=== PATIENT | male | born 1940 | race Caucasian/White ===

== ENCOUNTER → 2020-06-25 08:07 | Outpatient (CLI) | payer MEDICARE, OTHER, SELFPAY | PROVIDERS: PCP Family Medicine; Visit Provider Specialist | DX: N39.0 Urinary tract infection, site not specified (principal); R39.9 Unspecified symptoms and signs involving the genitourinary system; N39.41 Urge incontinence | CPT/HCPCS: 51798; 81002; 87086; 99214 ==

== ENCOUNTER → 2021-07-01 10:40 | Outpatient (CLI) | payer MEDICARE, OTHER, SELFPAY ==
[2021-07-01 12:02] LABS: Add Manual Diff / Slide Review NO; Basophils Absolute Auto 0 /uL (0-100); Basophils Percent Auto 0.8 % (0-2); Eosinophils Absolute Auto 300 /uL (0-450); Eosinophils Percent Auto 5.9 % (2-4); Hematocrit 38.4 % (41-53); Hemoglobin 12.9 g/dL (13.5-17.5); Lymphocytes Absolute Auto 1400 /uL (1100-4500); Lymphocytes Percent Auto 26.6 % (25-40); Mean Corpuscular HGB Conc 33.5 % (30-36); Mean Corpuscular Hemoglobin 32.4 PG (26-34); Mean Corpuscular Volume 96.5 fL (80-100); Monocytes Absolute Auto 400 /uL (0-900); Monocytes Percent Auto 8.2 % (3-14); Neutrophils Absolute Auto 3200 /uL (1500-7000); Neutrophils Percent Auto 58.5 % (50-75); Platelet Count 165 X10^3/uL (150-400); Red Blood Cell Count 3.98 X10^6/uL (4.5-5.9); Red Cell Distribution Width 12.6 % (11.6-14.8); White Blood Cell Count 5.4 X10^3/uL (4.5-11.0)
[2021-07-01 12:06] LABS: BUN Creatinine Ratio 22.8 (6-22); Blood Urea Nitrogen 28 mg/dL (9-20); Calcium 9.4 mg/dL (8.4-10.2); Carbon Dioxide 25 mmol/L (22-32); Chloride 107 mmol/L (98-107); Estimated Glomerular Filt Rate 56.2 mL/min (>60); Glucose 100 mg/dL (80-110); HEMOLYSIS < 15 (0-50); Potassium 4.3 mmol/L (3.4-5.1); Sodium 138 mmol/L (137-145)
[2021-07-01 12:51] LABS: Hemoglobin A1C% w Est Avg Glu 5.4 % (4.0-6.0)
== END ==
PROVIDERS: PCP Family Medicine; Referring Provider Orthopaedic Surgery; Visit Provider Orthopaedic Surgery
DX: Z01.818 Encounter for other preprocedural examination (principal); R73.9 Hyperglycemia, unspecified; Z01.812 Encounter for preprocedural laboratory examination; M25.562 Pain in left knee
CPT/HCPCS: 36415; 80048; 83036; 85025; 93005; 93010

== ENCOUNTER → 2022-05-18 12:44 | Outpatient (CLI) | payer MEDICARE, OTHER, SELFPAY ==
[2022-05-18 13:29] LABS: COVID19 -Nasal RAPID Negative (Negative)
== END ==
PROVIDERS: PCP Family Medicine; Referring Provider Orthopaedic Surgery; Visit Provider Orthopaedic Surgery
DX: Z20.822 Contact with and (suspected) exposure to COVID-19 (principal)
CPT/HCPCS: 87635; C9803

== ENCOUNTER 2022-05-19 07:31 | Day surgery (SDC) | payer MEDICARE, OTHER, SELFPAY ==
[2022-05-11 12:35] VITALS: BMI 25.0
[2022-05-19] VITALS (12 sets, daily range): BP systolic 109–160; BP diastolic 60–85; PULSE 60–622; RESP 8–18; TEMP 35.6–36.8; O2SAT 95–99; BMI 25.0
[2022-05-19] MEDS: LACTATED RINGERS 1,000 ML 42 ML IV ×2 (08:17→09:46)
--- NOTE | 2022-05-19 08:36 | DI.RAD.S_ITS ---
PROCEDURE: XR KNEE LT 1TO2V INDICATIONS: post op total knee TECHNIQUE: 2 view(s) of the knee acquired. COMPARISON: None. FINDINGS: Bones: Patient is status post knee joint arthroplasty. Hardware components are in expected positions. Visualized bony structures are intact. Soft tissues: Overlying postoperative changes are noted. IMPRESSION: Postop changes from left total knee arthroplasty with anatomic left knee alignment. Dictated by: José Miguel Braswell M.D. on 05/19/2022 at 11:25 Approved by: José Miguel Braswell M.D. on 05/19/2022 at 11:25
--- NOTE | 2022-05-19 08:39 | PM.PREOP ---
Pre-operative Note COVID-19 COVID-19 status: Negative Result date/Date tested (Pos, Neg/Pending): 05/18/22 Interval Note History & Physical reviewed/Exam performed by Physician: Yes Changes to H&P: No
--- NOTE | 2022-05-19 08:41 | PM.OP.1 ---
Operative Date/Time/Diagnoses Date of procedure: 05/19/22 Time of procedure: 10:30 Pre-op diagnosis: Knee osteoarthritis Post-op diagnosis: same Procedure & Clinicians Procedure: Left total knee replacement Same procedure as scheduled: Yes Indications: The patient has had progressively worsening left knee pain with radiographic changes consistent with arthritis. Non-operative management has failed and the patient has requested total knee replacement. The risks, benefits and alternatives to surgery were discussed with the patient prior to proceeding. Risks discussed included, but were not limited to, failure to relieve pain, stiffness, infection, nerve damage, deep venous thrombosis, pulmonary embolism, stroke, coma, heart attack, permanent paralysis and , as well as the potential need for eventual revision of the prosthetic. Surgeon: Srinivas Saucedo Splitter Operator: Kamala Short Click Yes if Unassisted: No Anesthesia Type: General, Spinal and Local Operative Notes Findings: Severe lateral and moderate patellofemoral osteoarthritis with relative preservation of the medial compartment. Closure Type: primary Specimen(s): none sent Prosthetic devices, grafts, tissues, transplants, or devices: Implants used in this procedure were manufactured by the [employer] and [employer] and included the BCS II Journey total knee replacement with a size 8 cobalt chromium femur, a size 7 left non porous tibial base plate, a 9 mm cross-linked tibial insert and a 41 mm oval Melinda II patella. Applied: implant(s) Estimated Blood Loss (mL): 50 Blood products transfused: none Tourniquet time (min): 60 Procedure in detail: The patient was seen in the pre-operative area, where the left knee was identified as the operative site and this was marked with my initials. The patient received pre-operative antibiotics, and was taken to the operating room and placed on the operative table in the supine position. After satisfactory anesthesia, a time clock mechanic out was performed. The left leg was encircled with a tourniquet about the proximal thigh, and the leg was prepared from the toes to the tourniquet with ChloroPrep in the usual fashion and draped through sterile drapes. The leg was elevated and exsanguinated with Eschmark bandage and the tourniquet inflated to 250 mmHg pressure. The knee was approached through an approximately 18 cm incision centered over the patella and carried into the knee through a medial parapatellar arthrotomy. The anterior osteophytes and soft tissues were removed. The rotational landmarks of Nika's line and the transepicondylar axis were marked on the femur with electrocautery, and intramedullary guide holes for the femur and tibia were created. The distal femoral cut was made in 6 degrees of valgus using the intramedullary guide at the +2 cut setting due to a flexion contracture. The proximal tibial cut was then made using the intramedullary guide, taking 7 mm of bone off the less involved medial side. The extension gap was checked and the rotation of the femoral component confirmed with the gap balancing blocks. The anterior, posterior and chamfer cuts were then made. The posterior osteophytes and soft tissues were then removed. The posterior capsule was injected with part of a mixture of 50 ml 0.25% Marcaine mixed with 20 ml Exparel and 4 mg of morphine for post-operative pain control. The remainder of this mixture was injected into the capsule and subcutaneous tissues during cement curing. The tibia was prepared with the rotation set by an extra medullary guide. Trial tibial and femoral components were then placed and the intercondylar notch cut through the femoral trial. Range of motion was 0-135 degrees, with good stability throughout the range. The patella was then cut to accommodate the patellar prosthetic. There was no need for a lateral release. The trials were then removed, and the femoral hole plugged with a bone plug. The bone was prepared with pulsatile lavage, and dried with a sponge. Cement was applied and the final prosthetics placed. Excess cement was removed during and after cement curing. After confirming there was no extruded cement posteriorly, the final tibial insert was placed. The knee was copiously irrigated and the tourniquet deflated. Hemostasis was obtained. The capsule was closed with interrupted # 2 polyester sutures. The subcutaneous layer was closed with 3-0 Vicryl, and the skin with a running 3-0 V-Lock suture and SteriStrips. An Aquacel Ag dressing was applied and the patient was taken to recovery having tolerated the procedure well. The services of a skilled teachers assistant were required during this procedure to assist with exposure and positioning of the leg to adequately perform the procedure. Without the services of Ms. Short the case would have been considerably extended in terms of time and there would have been increased risk to the patient. Complications: none Post-operative Condition: stable Disposition: PACU Plan for aftercare: The patient will be maintained on a standard total knee replacement protocol with weight bearing as tolerated. The patient will receive aspirin and sequential compression devices for DVT prophylaxis. The patient will be discharged home when safe for the home environment.
[2022-05-19] MEDS: ACETAMINOPHEN 325 MG TABLET 975 MG PO (08:43)
[2022-05-19] MEDS: CELECOXIB 200 MG CAPSULE PO (08:43)
[2022-05-19] MEDS: PREGABALIN 75 MG CAPSULE PO (08:43)
--- NOTE | 2022-05-19 08:56 | SUR.PREOP ---
Block start time [0840] . time out performedMonitoring initiated and maintained throughout procedure. Oxygen and medications given by anesthesiologist. Patient remained stable throughout procedure, no adverse reactions noted. Block end time [0848]. Pt left for OR in stable. condition.
[2022-05-19] MEDS: CEFAZOLIN 2 GM/20 ML SYRINGE IV (09:00)
[2022-05-19] MEDS: TRANEXAMIC ACID 1,000 MG VIAL 2000 MG INJ ×2 (09:10→10:26)
--- NOTE | 2022-05-19 09:27 | PM.PROC.1 ---
Procedures Date/Time Date of procedure: 05/19/22 Time of procedure: 08:45 General Procedure description: Ultrasound guided adductor canal nerve block for post op pain control after left total knee arthroplasty by Dr. Saucedo. Risk and benefits of procedure discussed with patient. ASA monitoring applied to patient. O2 given via nasal cannula. 1 mg Versed and 50 mcg fentanyl given for procedural sedation. Skin site was prepped with chlorhexidine and allowed to fully dry. Sterile gloves, mask, hat and probe cover were used to maintain sterility. 2% lidocaine and 30ga needle was used to make a small skin wheal at needle insertion site. Under ultrasound guidance, a 21ga 100mm Pajunk needle was directed into the adductor canal near femoral artery and saphenous nerve at the level of mid thigh. Patient reported no parasthesias. After negative aspiration, 20 mL 0.5% ropivicaine, 20ml 1%lido and 10mg dexamethasone were injected around saphenous nerve. Patient tolerated procedure well.
--- NOTE | 2022-05-19 09:36 | SUR.OPER ---
Supine on padded OR bed. Pillow under head, arms secured on padded armboards <90 degree abduction. Safety belt across torso. Non-operative leg secured with tape over blanket over lower leg. Operative leg secured in DeMayo/Julian/Nathe positioner. Foam padded brace at thigh of operative leg. Directed and approved by surgeon
[2022-05-19] MEDS: BUPIVACAINE 0.25% (PF) 60 ML, EPINEPHrine 0.3 MG INJ (09:47)
[2022-05-19] MEDS: MORPHINE 4 MG/ML INJ INJ (09:47)
[2022-05-19] MEDS: BUPIVACAINE LIPOSOME 266 MG/20 ML VIAL INJ (10:21)
--- NOTE | 2022-05-19 11:19 | SUR.PHASEI ---
report called to floor. Transferred by Sujata Davidson RN. Patient awake, oriented, taking ice chips independently. Clothing bag sent with him. Stable.
[2022-05-19] MEDS: LACTATED RINGERS 1,000 ML 100 ML IV ×2 (11:40→16:32)
[2022-05-19] MEDS: ACETAMINOPHEN 325 MG TABLET 650 MG PO (12:48)
[2022-05-19] MEDS: IBUPROFEN 400 MG TABLET PO ×3 (12:49→20:51)
--- NOTE | 2022-05-19 14:45 | PT.IIE ---
Current Diagnoses Unilateral primary osteoarthritis, left knee (05/19/22) Surgery Performed Operation Date: 05/19/22 08:45 Actual Procedures p Total Knee Arthroplasty(Left) - Srinivas Saucedo MD Surgical History (Last Updated 07/17/21 @ 10:13 by Gemma Park, RN) H/O hernia repair History of arthroplasty of right knee (2009) History of carpal tunnel surgery of left wrist History of prostate surgery History of total right hip arthroplasty (07/22/14) Vasectomy status Medical History (Last Updated 05/11/22 @ 13:05 by Gemma Park RN) Adenomatous colon polyp Chronic pain of left knee Depression Disorder of prostate Giardia (07/2021) Hearing loss Hypertension Hypoglycemia Hypothyroid Lower urinary tract symptoms (LUTS) Post-traumatic urethral stricture Prostate cancer Prostate cancer Prostate neoplasm Urge incontinence Physical Therapy Inpatient Evaluation/Re-Eval M1 PT/OT-IP Prior Functional Status Start: 05/19/22 16:26 Freq: NEEDED Status: Active Protocol: Document 05/19/22 14:45 AB (Rec: 05/19/22 16:33 AB [id number]) Medical Review Prior Functional Status Medical History Reviewed Yes Communication able to make needs known Mobility and Gait pt stated that he is independent with all mobilities and ambulation without AD Social History Household Members spouse Living Arrangements House Number of Floors (Floors) Two Floors Number of Stairs To Enter/Railing? pt stays on the main level of thehouse has no steps to enter Home Environment High Toilet,Walk in Shower, Built-In Shower Seat Home Equipment Front Wheel Walker,Straight Cane,Raised Toilet Seat w/ Armrests M2 PT-IP Current Condition Start: 05/19/22 16:26 Freq: NEEDED Status: Active Protocol: Document 05/19/22 14:45 AB (Rec: 05/19/22 16:33 AB [id number]) Physical Therapy Current Condition Current Condition Evaluation Date 05/19/22 Treatment Diagnosis s/p L TKA; difficulty in walking Onset Date 05/19/22 M3 PT-IP Subjective Start: 05/19/22 16:26 Freq: NEEDED Status: Active Protocol: Document 05/19/22 14:45 AB (Rec: 05/19/22 16:33 AB [email or web address]) Subjective Physical Therapy Visit Type Type Initial Evaluation Visit Start Time 14:45 Visit Stop Time 15:25 Total Visit Minutes 40 Number of MATERIAL DISPOSITION INSPECTOR Visits 0 Physical Therapy Visit Comments Patient Comments agreeable to do PT Therapy Pain Assessment Pain When Pain Assessed At Rest Pain Present Pain Present Pain Reported Location Left Hip Intensity 4 Scale Used Numeric (0 - 10) Pain Management Techniques Apply Cold,Modification of Treatment,Re-positioning, Timing of Activity with Medications M4 PT-IP Mobility and Gait Start: 05/19/22 16:26 Freq: NEEDED Status: Active Protocol: Document 05/19/22 14:45 AB (Rec: 05/19/22 16:33 AB [email or web address]) PT-Bed Mobility Assessment Supine to Sit Supine to Sit Standby Assistance PT-Transfer Assessment Sit to and From Stand Sit to and from Stand Contact Guard Assistance, Minimal Assistance,1 Person Assistance,Use of Upper Extremities Equipment Transfer Assistive Device Gait Belt,Front Wheeled Walker Orthotic/Prosthetic Devices or Brace: No Transfers Transfer Destination Chair Transfer Technique ambulated Transfer Ability Level of Assist Contact Guard Assistance, Minimal Assistance,1 Person Assistance,Use of Upper Extremities Comments Mobility Comments pt completed supine to sit SBA . able to sit on EOB SBA. completed sit to stand CGA to min A and ambulated in room with initial min A and cues for steadiness and L quads activation and able to ambulate SBA after a few feet. completed ~ 50 ft of amublation using FWW. pt agreed to sit on the chair. positioned on the chair. call light and table placed within reach. caregiver training set up for tomorrow at ~ 10 am 05/20/22 with spouse coming. Gait Assessment Gait Gait Assistance Required: Contact Guard Assist,Minimum Assistance Distance (Feet) 50 Able to Maintain Weight Bearing Status Yes During Gait Assistive Devices Assistive Device Gait Belt,Front Wheeled Walker Orthotic/Prosthetic Devices or Brace: No Gait Deviations General Gait Pattern Antalgic,Decreased Stride Length,Decreased Feet Clearance Factors Limiting Gait Function Factors Limiting Gait Function Decreased Activity Tolerance, Decreased Strength,Limited Range of Motion,Pain,Poor Balance PT-Balance Assessment Sitting Balance and Reactions Static Sitting Balance Ability Normal Dynamic Sitting Balance Ability Normal Standing Balance and Reactions Static Standing Balance Ability Fair Dynamic Standing Balance Ability Fair Device Used FWW M5 PT-IP Objective Assessments Start: 05/19/22 16:26 Freq: NEEDED Status: Active Protocol: Document 05/19/22 14:45 AB (Rec: 05/19/22 16:33 AB [email or web address]) Orientation Orientation/Cognition Level of Alertness Alert Orientation Name,Age,Birthday,Month,Date, Year,Day of Week,Place, Situation Language Function Ability No Deficits Noted Memory Description No Deficits Noted Gross Range of Motion Lower Extremity ROM Assessment Within Functional Limits Strength Lower Extremity Strength Assessment Left Impaired Hip 4/5 Knee 4-/5 Coordination Assessment Gross Coordination Gross Coordination WNL Sensation Assessment Sensation Gross Sensation WNL Muscle Tone Muscle Tone WNL Yes M6 PT-IP Treatment Start: 05/19/22 16:26 Freq: NEEDED Status: Active Protocol: Document 05/19/22 14:45 AB (Rec: 05/19/22 16:33 AB [email or web address]) Physical Therapy Treatment Education Education Provided Precautions,Weight Bearing Status,Post-Op Packet,Safety M7 PT-IP Assessment and Plan Start: 05/19/22 16:26 Freq: NEEDED Status: Active Protocol: Document 05/19/22 14:45 AB (Rec: 05/19/22 16:33 AB [email or web address]) PT Summary Assessment and Plan Potential Rehabilitation Potential Good Status of Condition at Evaluation Stable Summary Impairments Pain,ROM,Strength,Balance, Coordination,Sensation,Tone, Cognition,Bed Mobility, Transfers,Gait,Activity Tolerance Assessment Summary pt s/p L TKA and just had surgery this morning and will likely improve during hospital stay. caregiver training set up for tomorrow at ~ 10 am. will continue to assess progress. pt has outpt PT scheduled. Goals Bed Mobility Goal Independent Transfer Goal Independent,Front Wheeled Walker Gait Goal Independent,Front Wheel Walker Gait Distance 250 Days to Meet Goals 5 Frequency of Treatment Frequency Of Treatment Twice a Day Treatment Plan Physical Therapy Treatment Plan Bed Mobility Training,Transfer Training,Gait Training, Therapeutic Exercise,Balance Retraining,Post Op Education, Discharge Planning,Hot or Cold Pack,Neuromuscular Re-ed, Coordination Retraining,Manual Therapy Weight Bearing Status Weight Bearing Status Weight Bear as Tolerated Allowed Weight Bearing Amount (enter % LLE WBAT or #) (%) Recommendations To Nursing Amount of Assist Needed 1 Person Assist Discharge Recommendations PT Discharge Recommendations Home with Assistance, Outpatient PT Transportation Needs at Discharge Private Vehicle
--- NOTE | 2022-05-19 18:00 | PC.NURSE ---
Pt is AxOx4, needs 1 person assistance with FWW but pt went to the bathroom by himself fine. VSS, c/o pain on L knee 01/21 and it is controlled well with his routine Ibuprofen and Tylenol. Pt is eating well and voiding well. No other changes. Continue monitor.
[2022-05-19] MEDS: DOCUSATE 100 MG CAPSULE PO (20:51)
[2022-05-19] MEDS: ASPIRIN EC 81 MG TABLET PO (20:51)
[2022-05-20] MEDS: ACETAMINOPHEN 325 MG TABLET 650 MG PO ×2 (01:44→06:09)
[2022-05-20] MEDS: IBUPROFEN 400 MG TABLET PO ×3 (01:45→09:29)
[2022-05-20 02:04] VITALS: BP 135/69; PULSE 67; RESP 18; TEMP 36.6; O2SAT 99
[2022-05-20] MEDS: SODIUM CHLORIDE 0.9% FLUSH 10 ML IV ×2 (03:20→09:30)
[2022-05-20 06:00] VITALS: BP 157/82; PULSE 77; RESP 18; TEMP 36.1; O2SAT 99
[2022-05-20] MEDS: LEVOTHYROXINE 50 MCG TABLET PO (06:03)
[2022-05-20 06:14] LABS: Hematocrit 31.4 % (41-53); Hemoglobin 10.8 g/dL (13.5-17.5)
--- NOTE | 2022-05-20 06:59 | P.DS_ITS ---
History of Present Illness History of Present Illness Date Patient Seen: 05/20/22 Time Patient Seen: 07:00 Chief complaint: OPB Narrative: The history and physical is contained in the chart previously completed note. Please refer to that note for this information. Discharge Providers Provider Date of admission: May 19, 2022 Discharge Date: 05/20/22 Primary care physician: Marek Dyson DO Consults: 05/19/22 11:21 Consult to Discharge Planning Routine Comment: Consult to Physical Therapy Evaluate & Treat Comment: Physician Instructions: postop TKA protocol Discharge provider: Srinivas Saucedo MD Summary Hospital Course Discharge Diagnosis: 1. Left knee osteoarthritis 2. Post hemorrhagic anemia Hospital Course: The patient was admitted to the hospital and taken directly to the operating room on May 19, 2022. He underwent a left total knee replacement without complications. On postoperative day 1 he was comfortable. He had been able to make it from his bed to the bathroom unassisted. He did have a mild post hemorrhagic anemia. Status at Discharge Cognitive/behavioral status at discharge: at baseline, oriented Functional status at discharge: uses cane/walker Overall status at discharge: patient is progressing back to baseline Time Spent with Patient Time spent: Less than 30 minutes Exam Vital Signs (past 8 hours): - 05/20/22 02:04 05/20/22 06:00 Temperature 97.9 F 97.0 F L Pulse Rate 67 77 Respiratory Rate 18 18 Blood Pressure 135/69 157/82 H Pulse Oximetry 99 99 Oxygen Flow Rate 0 0 Oxygen Delivery Method Room Air Oxygen Flow Rate 0 Narrative Exam Narrative: Left knee wound is dressed with no drainage on the bandage. Calf is soft. Light touch and motion are intact in the left lower extremity. Objective Labs Result Diagrams: 05/20/22 05:55 Labs: Laboratory Results - last 24 hr 05/20/22 05:55 Hgb 10.8 L Hct 31.4 L PFSH Medical History (Updated 05/11/22 @ 13:05 by Gemma Park RN) Adenomatous colon polyp Chronic pain of left knee Depression Disorder of prostate Giardia (07/2021) Hearing loss Hypertension Hypoglycemia Hypothyroid Lower urinary tract symptoms (LUTS) Post-traumatic urethral stricture Prostate cancer Prostate cancer Prostate neoplasm Urge incontinence Surgical History (Updated 07/17/21 @ 10:13 by Gemma Park RN) H/O hernia repair History of arthroplasty of right knee (2009) History of carpal tunnel surgery of left wrist History of prostate surgery History of total right hip arthroplasty (07/22/14) Vasectomy status Social History household members: spouse Smoking Status: Never smoker alcohol intake: current Discharge Assessment & Plan Assessment and Plan Assessment: Stable postoperatively 1 day after a left total knee replacement. He has a mild post hemorrhagic anemia which should resolve spontaneously with normal diet. Plan of Treatment: Discharge today. Follow up in my office in 10-14 days. A prescription for oxycodone has been sent to the [facility] at his request. He has also been instructed in the use of Tylenol and ibuprofen for pain control. He has been instructed in the use of low-dose aspirin for DVT prophylaxis. Discharge Plan Discharge Plan Patient Disposition: Home Discharge orders & Medications Discharge Orders: Discharge (Order); Ordered 05/20/22 Ordered By: Srinivas Saucedo Prescriptions: New acetaminophen 325 mg Tablet 650 mg PO Q6HR Qty: 100 0RF aspirin 81 mg Tablet,Delayed Release (Dr/Ec) 81 mg PO BID Qty: 90 0RF ibuprofen 400 mg Tablet 400 mg PO Q4HR Qty: 100 0RF oxycodone 5 mg Tablet 5 mg PO Q4H PRN (Reason: Pain, Moderate (4-6)) Qty: 40 0RF Continued citalopram [Celexa] 20 mg tablet 20 mg PO DAILY levothyroxine 50 mcg capsule 50 mcg PO DAILY sildenafil [Viagra] 50 mg tablet 100 mg PO DAILY PRN (Reason: Sexual Activity) Rx Instructions: administer 30 minutes to 4 hours before activity irbesartan 300 mg Tablet 300 mg PO DAILY fluticasone propionate 50 mcg/actuation [place],Suspension 1 - 2 spray INTRANASAL DAILY PRN (Reason: Sinus congestion) Discontinued acetaminophen 500 mg Tablet 1,000 mg PO DAILY PRN (Reason: Pain) glucose Tablet,Chewable 5 g PO Q15M PRN (Reason: Hypoglycemia) Rx Instructions: until symptoms of low blood sugar are controlled Follow up/Referrals: Marek Dyson DO [Primary Care Provider] - Srinivas Saucedo MD [Physician] - 2 Weeks (Follow up with Dr Saucedo on 06/01/2022 @ 1:00 pm at [facility] Located [facility] office in [place]) Diet/Activity/Treatments Diet: Diet as Tolerated and Regular Activity: You may bear weight as tolerated on your left leg. Cold/Heat Therapy: You may apply ice for 15 minutes every hour as needed to the left leg for pain control. Skin/Wound/Dressing Care Report to your healthcare provider any signs of infection, such as:: chills, fever, night sweats, increased pain, unusual drainage and unusual redness Dressing: You may remove the Vlad wrap 3 days after surgery and shower normally with the deeper dressing in place. Leave the deeper dressing in place until your postoperative follow-up. If the central strip of the deeper dressing becomes saturated with either water or blood, please call the office to have it evaluated. Visit Report/Discharge Packet Instructions: DI for Knee Replacement Stand Alone Forms: Surgery Discharge Discharge Data Primary Care Provider: Marek Dyson Attending Provider: Srinivas Saucedo Quality VTE Deep Vein Thrombosis/Pulmonary Embolism Present on Admission: No
[2022-05-20 07:15] VITALS: BP 138/66; PULSE 62; RESP 18; TEMP 36.3; O2SAT 100
[2022-05-20] MEDS: OXYCODONE IR 5 MG TABLET PO (09:27)
[2022-05-20 09:28] VITALS: BP 138/66; PULSE 74
[2022-05-20] MEDS: CITALOPRAM 10 MG TABLET 20 MG PO (09:28)
[2022-05-20] MEDS: LOSARTAN 50 MG TABLET 100 MG PO (09:28)
[2022-05-20] MEDS: DOCUSATE 100 MG CAPSULE PO (09:29)
[2022-05-20] MEDS: ASPIRIN EC 81 MG TABLET PO (09:29)
--- NOTE | 2022-05-20 10:23 | PT.IPTN ---
Current Diagnoses Unilateral primary osteoarthritis, left knee (05/19/22) Surgery Performed Operation Date: 05/19/22 08:45 Actual Procedures p Total Knee Arthroplasty(Left) - Srinivas Saucedo MD Physical Therapy Treatment Note M2 PT-IP Current Condition Start: 05/19/22 16:26 Freq: NEEDED Status: Discharge Protocol: Document 05/19/22 14:45 AB (Rec: 05/19/22 16:33 AB [email or web address]) Physical Therapy Current Condition Current Condition Evaluation Date 05/19/22 Treatment Diagnosis s/p L TKA; difficulty in walking Onset Date 05/19/22 M3 PT-IP Subjective Start: 05/19/22 16:26 Freq: NEEDED Status: Discharge Protocol: Document 05/20/22 10:23 AB (Rec: 05/20/22 12:45 AB [email or web address]) Subjective Physical Therapy Visit Type Type Treatment Note Visit Start Time 10:23 Visit Stop Time 10:56 Total Visit Minutes 33 Number of KNOTTER HAND Visits 0 Physical Therapy Visit Comments Patient Comments agreeable to do PT Therapy Pain Assessment Pain When Pain Assessed At Rest Pain Present Pain Present Pain Reported Location Left Hip Intensity 2 Scale Used Numeric (0 - 10) Pain Management Techniques Apply Cold,Distraction, Modification of Treatment,Re- positioning,Timing of Activity with Medications M4 PT-IP Mobility and Gait Start: 05/19/22 16:26 Freq: NEEDED Status: Discharge Protocol: Document 05/20/22 10:23 AB (Rec: 05/20/22 12:45 AB [email or web address]) PT-Bed Mobility Assessment Supine to Sit Supine to Sit Standby Assistance Sit to Supine Sit to Supine Standby Assistance PT-Transfer Assessment Sit to and From Stand Sit to and from Stand Standby Assistance,1 Person Assistance,Use of Upper Extremities Equipment Transfer Assistive Device Gait Belt,Front Wheeled Walker Orthotic/Prosthetic Devices or Brace: No Transfers Transfer Destination Bed,Chair Transfer Technique ambulated Transfer Ability Level of Assist Standby Assistance,1 Person Assistance,Use of Upper Extremities Comments Mobility Comments pt sitting on chair. spouse in room. pt completed sit to stand SBA but with heavy arm use. educated pt on sit to stand techniques and repeated x 4 reps and pt with more stable transition to standing. pt ambulated in room using FWW ~ 50 ft SBA and initial cues for L quads activation and with carryover. pt sat on EOB and demonstrated bed mobility SBA. completed sit to stand from EOB x 5 SBA and initial cues for techniques. pt step transfer to chair using FWW SBA. positioned on chair. call light and table placed within reach. educated spouse on how to cue and assist pt if needed but at this time is only requiring SBA. pt and spouse without further concerns. Gait Assessment Gait Gait Assistance Required: Standby Assistance Distance (Feet) 50 Able to Maintain Weight Bearing Status Yes During Gait Assistive Devices Assistive Device Gait Belt,Front Wheeled Walker Orthotic/Prosthetic Devices or Brace: No Gait Deviations General Gait Pattern Antalgic,Decreased Stride Length,Decreased Feet Clearance Factors Limiting Gait Function Factors Limiting Gait Function Decreased Activity Tolerance, Decreased Strength,Limited Range of Motion,Pain,Poor Balance M5 PT-IP Objective Assessments Start: 05/19/22 16:26 Freq: NEEDED Status: Discharge Protocol: Document 05/19/22 14:45 AB (Rec: 05/19/22 16:33 AB [email or web address]) Orientation Orientation/Cognition Level of Alertness Alert Orientation Name,Age,Birthday,Month,Date, Year,Day of Week,Place, Situation Language Function Ability No Deficits Noted Memory Description No Deficits Noted Gross Range of Motion Lower Extremity ROM Assessment Within Functional Limits Strength Lower Extremity Strength Assessment Left Impaired Hip 4/5 Knee 4-/5 Coordination Assessment Gross Coordination Gross Coordination WNL Sensation Assessment Sensation Gross Sensation WNL Muscle Tone Muscle Tone WNL Yes M6 PT-IP Treatment Start: 05/19/22 16:26 Freq: NEEDED Status: Discharge Protocol: Document 05/20/22 10:23 AB (Rec: 05/20/22 12:45 AB [email or web address]) Physical Therapy Treatment Education Education Provided Safety M7 PT-IP Assessment and Plan Start: 05/19/22 16:26 Freq: NEEDED Status: Discharge Protocol: Document 05/20/22 10:23 AB (Rec: 05/20/22 12:45 AB [email or web address]) PT Summary Assessment and Plan Potential Rehabilitation Potential Good Summary Impairments Pain,ROM,Strength,Balance, Coordination,Sensation,Tone, Cognition,Bed Mobility, Transfers,Gait,Activity Tolerance Progress Towards Goals Progressing Toward Goals Assessment Summary pt progressing well with mobility and plans to go home with spouse to assist. pt has outpt PT set up. pt may go home when medically stable. Goals Bed Mobility Goal Independent Transfer Goal Independent,Front Wheeled Walker Gait Goal Independent,Front Wheel Walker Gait Distance 250 Days to Meet Goals 5 Frequency of Treatment Frequency Of Treatment Twice a Day Treatment Plan Physical Therapy Treatment Plan Bed Mobility Training,Transfer Training,Gait Training, Therapeutic Exercise,Balance Retraining,Post Op Education, Discharge Planning,Hot or Cold Pack,Neuromuscular Re-ed, Coordination Retraining,Manual Therapy Weight Bearing Status Weight Bearing Status Weight Bear as Tolerated Allowed Weight Bearing Amount (enter % LLE WBAT or #) (%) Recommendations To Nursing Amount of Assist Needed 1 Person Assist Discharge Recommendations PT Discharge Recommendations Home with Assistance, Outpatient PT Transportation Needs at Discharge Private Vehicle
--- NOTE | 2022-05-20 11:33 | PC.NURSE ---
Discharge note: Patient discharged home per MD order and cleared by PT. Discharge instructions given to patient and spouse (Julee), discussed importance of F/U with Ortho in two weeks, dressing care, new medications, and mobility precautions. Both verbalized understanding of instructions. Home via private vehicle accompanied by Julee.
== END 2022-05-20 11:36 | disposition home or self-care (01) ==
LOC: OR 07:32 → AC 07:33
PROVIDERS: PCP Family Medicine; Referring Provider Orthopaedic Surgery; Visit Provider Orthopaedic Surgery
PROC: 0SRD0JZ Replacement of Left Knee Joint with Synthetic Substitute, Open Approach (ICD-10-PCS; CPT 27447; principal; 2022-05-19 08:45)
DX: M17.12 Unilateral primary osteoarthritis, left knee (principal); I10 Essential (primary) hypertension
CPT/HCPCS: 27447; 36415; 64450; 73560; 85014; 85018; 97161; 97530; C1776; C1713; C9290; J0171; J0690; J1100; J2250; J2270; J2405; J2704; J3010